=== PATIENT | male | born 1965 | race Caucasian/White ===

== ENCOUNTER 2016-12-12 19:30 | Emergency (ER) | payer OTHER ==
[~2016-12-12] VITALS: Ht 175.3 cm; Wt 93.0 kg
[~2016-12-12 19:30] MED LIST: ASPIRIN325 PO; CELEXA40 MG PO; ENALAPRIL MALEA10 M1 PO; IBUPROFEN200 M2 PO; KEFLEX500 MG PO; LIPITOR10 MG PO; LIPITOR40 MG PO; LOPRESSOR 50 MG50 M1 PO; LOPRESSOR25 PO; MOBIC15 MG PO; NORCO 5-325 TA1 EACH PO; PENICILLIN V P500 MG PO; PERCOCET 5-3251 EACH PO; PRAVACHOL20 MG PO; PRAVACHOL80 MG PO; PRILOSEC 20 MG20 MG PO; SERTRALINE HCL50 MG PO; SIMVASTATIN10 MG
[2016-12-12] MEDS ORDERED: ULTRAM 50MG TAB50 MG PO (20:01)
[2016-12-12] MEDS ORDERED: NORFLEX100 MG PO (20:01)
[2016-12-12] MEDS ORDERED: PREDNISONE 10 M10 MG PO (20:01)
== END 2016-12-12 20:19 | disposition home or self-care (01) ==
LOC: ER 19:30
DX: S39.012A Strain of muscle, fascia and tendon of lower back, initial encounter (principal); M54.16 Radiculopathy, lumbar region; I10 Essential (primary) hypertension; E78.5 Hyperlipidemia, unspecified; K21.9 Gastro-esophageal reflux disease without esophagitis; H81.09 Meniere's disease, unspecified ear; F32.9 Major depressive disorder, single episode, unspecified; F41.9 Anxiety disorder, unspecified; F17.210 Nicotine dependence, cigarettes, uncomplicated; W13.2XXA Fall from, out of or through roof, initial encounter; Y93.89 Activity, other specified; Y92.89 Other specified places as the place of occurrence of the external cause; Y99.8 Other external cause status; Z90.89 Acquired absence of other organs; Z95.5 Presence of coronary angioplasty implant and graft

== ENCOUNTER 2017-11-25 16:20 | Emergency (ER) | payer OTHER ==
[~2017-11-25] VITALS: Ht 175.3 cm; Wt 96.2 kg
[~2017-11-25 16:20] MED LIST changes: +ASPIR 8181 MG PO; +HYDROCHLOROTHIA25 M2 PO; +HYDROCODONE-AP1 EAC6 PO; +NAPROSYN500 MG PO; +NORFLEX100 MG PO; +OMEPRAZOLE20 M1 PO; +PREDNISONE 10 M10 MG PO; +ULTRAM 50MG TAB50 MG PO; +VALIUM5 MG PO
[2017-11-25] MEDS ORDERED: CYMBALTA60 MG PO (16:31)
[2017-11-25 16:50] LABS: ABSOLUTE NEUTROPHILS 5.7 thou/uL (1.4-8.2); BASOPHILS 1.4 % (0.0-2.0); EOSINOPHILS 3.2 % (0.0-3.0); HEMATOCRIT 36.1 % (42.0-52.0); HEMOGLOBIN 12.4 gm/dL (14.0-18.0); LYMPHOCYTES 34.3 % (24.0-44.0); MCH 30.4 pg (26.0-34.0); MCHC 34.3 g/dL (28.0-37.0); MCV 88.8 fL (80.0-100.0); MONOCYTES 7.4 % (1.0-8.0); PLATELET COUNT 276 thou/uL (150-400); POLYS 53.7 % (36.0-66.0); RBC 4.06 mil/uL (4.50-6.00); RDW 14.2 % (10.5-14.5); WBC 10.6 thou/uL (4.0-11.0)
[2017-11-25 17:07] LABS: CALCIUM 8.8 mg/dL (8.5-10.1); POTASSIUM 3.1 mmol/L (3.5-5.1)
[2017-11-25 17:12] LABS: ALBUMIN 3.8 g/dL (3.4-5.0); TOTAL BILIRUBIN 0.3 mg/dL (<0.1-1.0)
[2017-11-25 17:20] LABS: URINE BILIRUBIN NEGATIVE (Negative); URINE BLOOD NEGATIVE (Negative); URINE CLARITY CLEAR; URINE COLOR YELLOW; URINE GLUCOSE-RANDOM* NEGATIVE (Negative); URINE KETONES NEGATIVE (Negative); URINE LEUKOCYTES-REFLEX NEGATIVE (Negative); URINE NITRITE-REFLEX NEGATIVE (Negative); URINE PROTEIN (DIPSTICK) NEGATIVE (Negative); URINE SPECIFIC GRAVITY <= 1.005 (1.005-1.035); URINE UROBILINOGEN 0.2 E.U./dl (0.2-1.0)
[2017-11-25] MEDS ORDERED: CIPRO500 MG PO (18:13)
[2017-11-25] MEDS ORDERED: BENTYL 20 MG TA20 M1 PO (18:13)
== END 2017-11-25 18:31 | disposition home or self-care (01) ==
LOC: ER 16:20
PROVIDERS: Nurse Practitioner Family
DX: A09 Infectious gastroenteritis and colitis, unspecified (principal); I10 Essential (primary) hypertension; E78.5 Hyperlipidemia, unspecified; K21.9 Gastro-esophageal reflux disease without esophagitis; F41.9 Anxiety disorder, unspecified; F32.9 Major depressive disorder, single episode, unspecified; Z95.811 Presence of heart assist device; F17.210 Nicotine dependence, cigarettes, uncomplicated

== ENCOUNTER 2018-01-19 13:34 | Emergency (ER) | payer OTHER ==
[~2018-01-19] VITALS: Ht 175.3 cm; Wt 97.5 kg
[~2018-01-19 13:34] MED LIST changes: +BENTYL 20 MG TA20 M1 PO; +CIPRO500 MG PO; +CYMBALTA60 MG PO
[2018-01-19 13:45] LABS: URINE BILIRUBIN NEGATIVE (Negative); URINE BLOOD 3+ (Negative); URINE CLARITY CLEAR; URINE COLOR YELLOW; URINE GLUCOSE-RANDOM* NEGATIVE (Negative); URINE KETONES NEGATIVE (Negative); URINE LEUKOCYTES-REFLEX NEGATIVE (Negative); URINE NITRITE-REFLEX NEGATIVE (Negative); URINE PROTEIN (DIPSTICK) NEGATIVE (Negative); URINE SPECIFIC GRAVITY <= 1.005 (1.005-1.035); URINE UROBILINOGEN 0.2 E.U./dl (0.2-1.0)
[2018-01-19] MEDS ORDERED: ZOLOFT100 MG PO (13:48)
[2018-01-19] MEDS ORDERED: QUETIAPINE FUMA25 MG PO (13:50)
[2018-01-19 14:06] LABS: CRYSTALS None Seen /LPF (None Seen); SQUAMOUS None Seen /LPF (0-3); URINE RBC >20 Many /HPF (0-2)
[2018-01-19 14:07] LABS: BACTERIA-REFLEX 1-9 Few /HPF (None Seen); CASTS None Seen /LPF (None Seen); URINE WBC-REFLEX None Seen /HPF (0-5)
[2018-01-19 14:12] LABS: ABSOLUTE NEUTROPHILS 5.3 thou/uL (1.4-8.2); BASOPHILS 0.8 % (0.0-2.0); EOSINOPHILS 3.6 % (0.0-3.0); HEMATOCRIT 38.8 % (42.0-52.0); HEMOGLOBIN 13.3 gm/dL (14.0-18.0); LYMPHOCYTES 35.9 % (24.0-44.0); MCH 30.5 pg (26.0-34.0); MCHC 34.3 g/dL (28.0-37.0); MONOCYTES 5.2 % (1.0-8.0); PLATELET COUNT 260 thou/uL (150-400); POLYS 54.5 % (36.0-66.0); RBC 4.37 mil/uL (4.50-6.00); RDW 14.1 % (10.5-14.5); WBC 9.7 thou/uL (4.0-11.0)
[2018-01-19 14:22] LABS: CALCIUM 9.1 mg/dL (8.5-10.1); CREATININE 1.1 mg/dL (0.7-1.3); POTASSIUM 3.8 mmol/L (3.5-5.1)
[2018-01-19 14:27] LABS: ALBUMIN 4.1 g/dL (3.4-5.0); TOTAL BILIRUBIN 0.4 mg/dL (<0.1-1.0); TOTAL PROTEIN 7.7 g/dL (6.4-8.2)
[2018-01-19] MEDS ORDERED: FLOMAX0.4 MG PO (15:03)
[2018-01-19] MEDS ORDERED: CIPROFLOXACIN500 M1 PO (15:03)
[2018-01-19] MEDS ORDERED: PHENAZOPYRIDIN200 M2 PO (15:03)
[2018-01-19] MEDS ORDERED: NORCO 10-325 T1 EACH PO (15:03)
== END 2018-01-19 19:04 | disposition home or self-care (01) ==
LOC: ER 13:34
PROVIDERS: Physician Assistant
DX: N39.0 Urinary tract infection, site not specified (principal); R31.9 Hematuria, unspecified; I10 Essential (primary) hypertension; E78.5 Hyperlipidemia, unspecified; K21.9 Gastro-esophageal reflux disease without esophagitis; F32.9 Major depressive disorder, single episode, unspecified; F41.9 Anxiety disorder, unspecified; Z95.5 Presence of coronary angioplasty implant and graft; F17.210 Nicotine dependence, cigarettes, uncomplicated

== ENCOUNTER 2018-02-19 11:01 | Emergency (ER) | payer OTHER ==
[~2018-02-19] VITALS: Ht 175.3 cm; Wt 97.5 kg
[~2018-02-19 11:01] MED LIST changes: +CIPROFLOXACIN500 M1 PO; +FLOMAX0.4 MG PO; +NORCO 10-325 T1 EACH PO; +PHENAZOPYRIDIN200 M2 PO; +QUETIAPINE FUMA25 MG PO; +ZOLOFT100 MG PO
[2018-02-19] MEDS ORDERED: NORCO 5-325 TA1 EACH PO (12:37)
== END 2018-02-19 12:57 | disposition home or self-care (01) ==
LOC: ER 11:01
DX: S97.81XA Crushing injury of right foot, initial encounter (principal); G89.18 Other acute postprocedural pain; F17.210 Nicotine dependence, cigarettes, uncomplicated; I10 Essential (primary) hypertension; E78.5 Hyperlipidemia, unspecified; K21.9 Gastro-esophageal reflux disease without esophagitis; F32.9 Major depressive disorder, single episode, unspecified; F41.9 Anxiety disorder, unspecified; Z90.89 Acquired absence of other organs; Z95.5 Presence of coronary angioplasty implant and graft; W28.XXXA Contact with powered lawn mower, initial encounter; Y92.007 Garden or yard of unspecified non-institutional (private) residence as the place of occurrence of the external cause; Y93.H2 Activity, gardening and landscaping; Y99.8 Other external cause status

== ENCOUNTER 2018-07-16 13:13 | Emergency (ER) | payer OTHER ==
[~2018-07-16] VITALS: Ht 172.7 cm; Wt 90.7 kg
[2018-07-16 13:38] LABS: URINE CLARITY CLEAR; URINE COLOR YELLOW; URINE GLUCOSE-RANDOM* NEGATIVE (Negative); URINE KETONES NEGATIVE (Negative); URINE PROTEIN (DIPSTICK) NEGATIVE (Negative); URINE SPECIFIC GRAVITY < 1.005 (1.005-1.035)
[2018-07-16 13:39] LABS: URINE BILIRUBIN NEGATIVE (Negative); URINE BLOOD 3+ (Negative); URINE LEUKOCYTES-REFLEX NEGATIVE (Negative); URINE NITRITE-REFLEX NEGATIVE (Negative); URINE UROBILINOGEN 0.2 E.U./dl (0.2-1.0)
[2018-07-16 13:48] LABS: BACTERIA-REFLEX None Seen /HPF (None Seen); CASTS None Seen /LPF (None Seen); CRYSTALS None Seen /LPF (None Seen); SQUAMOUS None Seen /LPF (0-3); URINE RBC >20 Many /HPF (0-2); URINE WBC-REFLEX 0-5 Rare /HPF (0-5)
[2018-07-16 14:01] LABS: HEMATOCRIT 39.5 % (42.0-52.0); HEMOGLOBIN 13.4 gm/dL (14.0-18.0); MCH 30.2 pg (26.0-34.0); MCHC 33.9 g/dL (28.0-37.0); RBC 4.44 mil/uL (4.50-6.00); WBC 9.9 thou/uL (4.0-11.0)
[2018-07-16 14:04] LABS: CALCIUM 9.3 mg/dL (8.5-10.1); POTASSIUM 3.5 mmol/L (3.5-5.1)
[2018-07-16] MEDS ORDERED: LIPITOR80 MG PO (14:21)
[2018-07-16] MEDS ORDERED: NORCO 5-325 TA1 EACH PO (14:52)
[2018-07-16 15:16] VITALS: BP 123/77
== END 2018-07-16 15:17 | disposition home or self-care (01) ==
LOC: ER 13:13
PROVIDERS: Emergency Medicine
DX: R31.9 Hematuria, unspecified (principal); N32.89 Other specified disorders of bladder; I10 Essential (primary) hypertension; E78.5 Hyperlipidemia, unspecified; K21.9 Gastro-esophageal reflux disease without esophagitis; F32.9 Major depressive disorder, single episode, unspecified; F41.9 Anxiety disorder, unspecified; F17.210 Nicotine dependence, cigarettes, uncomplicated

== ENCOUNTER 2018-07-27 16:06 | Emergency (ER) | payer OTHER ==
[~2018-07-27] VITALS: Ht 175.3 cm; Wt 92.1 kg
[~2018-07-27 16:06] MED LIST changes: +LIPITOR80 MG PO
[2018-07-27 16:29] LABS: URINE BILIRUBIN NEGATIVE (Negative); URINE BLOOD 3+ (Negative); URINE CLARITY CLEAR; URINE COLOR YELLOW; URINE GLUCOSE-RANDOM* NEGATIVE (Negative); URINE KETONES NEGATIVE (Negative); URINE LEUKOCYTES-REFLEX NEGATIVE (Negative); URINE NITRITE-REFLEX NEGATIVE (Negative); URINE PROTEIN (DIPSTICK) NEGATIVE (Negative); URINE SPECIFIC GRAVITY <= 1.005 (1.005-1.035); URINE UROBILINOGEN 0.2 E.U./dl (0.2-1.0)
[2018-07-27 16:44] LABS: BACTERIA-REFLEX 1-9 Few /HPF (None Seen); CASTS None Seen /LPF (None Seen); CRYSTALS None Seen /LPF (None Seen); SQUAMOUS None Seen /LPF (0-3); URINE RBC >20 Many /HPF (0-2); URINE WBC-REFLEX None Seen /HPF (0-5)
[2018-07-27 16:47] LABS: ABSOLUTE NEUTROPHILS 4.2 thou/uL (1.4-8.2); BASOPHILS 1.1 % (0.0-2.0); EOSINOPHILS 3.9 % (0.0-3.0); HEMATOCRIT 39.4 % (42.0-52.0); HEMOGLOBIN 13.4 gm/dL (14.0-18.0); LYMPHOCYTES 38.4 % (24.0-44.0); MCH 30.2 pg (26.0-34.0); MONOCYTES 5.1 % (1.0-8.0); PLATELET COUNT 263 thou/uL (150-400); POLYS 51.5 % (36.0-66.0); RBC 4.42 mil/uL (4.50-6.00); RDW 14.7 % (10.5-14.5); WBC 8.1 thou/uL (4.0-11.0)
[2018-07-27 16:54] LABS: CALCIUM 9.4 mg/dL (8.5-10.1); POTASSIUM 3.8 mmol/L (3.5-5.1)
[2018-07-27 17:00] LABS: TOTAL BILIRUBIN 0.2 mg/dL (<0.1-1.0); TOTAL PROTEIN 7.6 g/dL (6.4-8.2)
[2018-07-27] MEDS ORDERED: CIPRO500 MG PO (19:11)
[2018-07-27] MEDS ORDERED: NORCO 10-325 T1 EACH PO (19:11)
[2018-07-27 19:19] VITALS: BP 146/76
== END 2018-07-27 19:20 | disposition home or self-care (01) ==
LOC: ER 16:06
PROVIDERS: Physician Assistant
DX: N39.0 Urinary tract infection, site not specified (principal); N41.9 Inflammatory disease of prostate, unspecified; R31.9 Hematuria, unspecified; F17.210 Nicotine dependence, cigarettes, uncomplicated; I10 Essential (primary) hypertension; E78.5 Hyperlipidemia, unspecified; K21.9 Gastro-esophageal reflux disease without esophagitis; F32.9 Major depressive disorder, single episode, unspecified; F41.9 Anxiety disorder, unspecified; Z90.89 Acquired absence of other organs; Z95.5 Presence of coronary angioplasty implant and graft

== ENCOUNTER 2018-08-17 14:07 | Emergency (ER) | payer OTHER ==
[~2018-08-17] VITALS: Ht 175.3 cm; Wt 95.3 kg
[2018-08-17] MEDS ORDERED: OXYBUTYNIN 5 MG5 M2 PO (14:32)
[2018-08-17] MEDS ORDERED: SEROQUEL XR400 M1 PO (14:32)
[2018-08-17] MEDS ORDERED: NORCO 5-325 TA1 EACH PO (15:55)
[2018-08-17] MEDS ORDERED: MOBIC7.5 MG PO (15:55)
[2018-08-17 16:10] VITALS: BP 108/73
== END 2018-08-17 16:10 | disposition home or self-care (01) ==
LOC: ER 14:07
DX: S39.012A Strain of muscle, fascia and tendon of lower back, initial encounter (principal); S20.212A Contusion of left front wall of thorax, initial encounter; M25.552 Pain in left hip; F17.210 Nicotine dependence, cigarettes, uncomplicated; I10 Essential (primary) hypertension; E78.5 Hyperlipidemia, unspecified; K21.9 Gastro-esophageal reflux disease without esophagitis; F41.9 Anxiety disorder, unspecified; F32.9 Major depressive disorder, single episode, unspecified; Z95.5 Presence of coronary angioplasty implant and graft; Z90.89 Acquired absence of other organs; W00.0XXA Fall on same level due to ice and snow, initial encounter; Y92.89 Other specified places as the place of occurrence of the external cause; Y93.01 Activity, walking, marching and hiking; Y99.8 Other external cause status

== ENCOUNTER 2018-11-12 18:51 | Emergency (ER) | payer OTHER ==
[~2018-11-12] VITALS: Ht 175.3 cm; Wt 88.5 kg
[~2018-11-12 18:51] MED LIST changes: +MOBIC7.5 MG PO; +OXYBUTYNIN 5 MG5 M2 PO; +SEROQUEL XR400 M1 PO
[2018-11-12] MEDS ORDERED: IBUPROFEN 600600 M1 PO (20:02)
[2018-11-12] MEDS ORDERED: HYDROCODONE-AP1 EAC6 PO (20:02)
[2018-11-12 20:52] VITALS: BP 140/78
== END 2018-11-12 20:52 | disposition home or self-care (01) ==
LOC: ER 18:51
DX: S90.32XA Contusion of left foot, initial encounter (principal); I10 Essential (primary) hypertension; E78.5 Hyperlipidemia, unspecified; K21.9 Gastro-esophageal reflux disease without esophagitis; F32.9 Major depressive disorder, single episode, unspecified; F41.9 Anxiety disorder, unspecified; Z95.5 Presence of coronary angioplasty implant and graft; F17.210 Nicotine dependence, cigarettes, uncomplicated; W20.8XXA Other cause of strike by thrown, projected or falling object, initial encounter; Y93.89 Activity, other specified; Y92.89 Other specified places as the place of occurrence of the external cause; Y99.8 Other external cause status

== ENCOUNTER 2018-11-29 16:15 | Emergency (ER) | payer OTHER ==
[~2018-11-29] VITALS: Ht 175.3 cm; Wt 84.4 kg
[2018-11-29 23:52] VITALS: BP 141/88
== END 2018-11-29 17:45 | disposition home or self-care (01) ==
LOC: ER 16:15
DX: S81.812A Laceration without foreign body, left lower leg, initial encounter (principal); E78.5 Hyperlipidemia, unspecified; K21.9 Gastro-esophageal reflux disease without esophagitis; F32.9 Major depressive disorder, single episode, unspecified; F41.9 Anxiety disorder, unspecified; F17.210 Nicotine dependence, cigarettes, uncomplicated; I10 Essential (primary) hypertension; Z95.5 Presence of coronary angioplasty implant and graft; Z90.49 Acquired absence of other specified parts of digestive tract; W10.9XXA Fall (on) (from) unspecified stairs and steps, initial encounter; Y92.009 Unspecified place in unspecified non-institutional (private) residence as the place of occurrence of the external cause; Y93.89 Activity, other specified; Y99.8 Other external cause status

== ENCOUNTER 2019-01-06 16:10 | Emergency (ER) | payer OTHER ==
[~2019-01-06] VITALS: Ht 175.3 cm; Wt 84.4 kg
[~2019-01-06 16:10] MED LIST changes: +AMOXICILLIN500 M1 PO; +IBUPROFEN 600600 M1 PO
[2019-01-06] MEDS ORDERED: NORCO 5-325 TA1 EAC1 PO (17:06)
[2019-01-06 17:49] VITALS: BP 133/91
== END 2019-01-06 17:50 | disposition home or self-care (01) ==
LOC: ER 16:10
DX: M27.3 Alveolitis of jaws (principal); G89.18 Other acute postprocedural pain; I10 Essential (primary) hypertension; K21.9 Gastro-esophageal reflux disease without esophagitis; E78.00 Pure hypercholesterolemia, unspecified; F41.9 Anxiety disorder, unspecified; F32.9 Major depressive disorder, single episode, unspecified; F17.210 Nicotine dependence, cigarettes, uncomplicated; E78.5 Hyperlipidemia, unspecified; Z90.89 Acquired absence of other organs; Z95.5 Presence of coronary angioplasty implant and graft

== ENCOUNTER 2019-02-25 17:46 | Emergency (ER) | payer OTHER ==
[~2019-02-25] VITALS: Ht 175.3 cm; Wt 80.7 kg
[~2019-02-25 17:46] MED LIST changes: +NORCO 5-325 TA1 EAC1 PO
[2019-02-25 18:13] LABS: URINE BILIRUBIN NEGATIVE (Negative); URINE BLOOD 3+ (Negative); URINE CLARITY CLEAR; URINE COLOR YELLOW; URINE GLUCOSE-RANDOM* NEGATIVE (Negative); URINE KETONES NEGATIVE (Negative); URINE LEUKOCYTES-REFLEX NEGATIVE (Negative); URINE NITRITE-REFLEX NEGATIVE (Negative); URINE PROTEIN (DIPSTICK) NEGATIVE (Negative); URINE SPECIFIC GRAVITY <= 1.005 (1.005-1.035); URINE UROBILINOGEN 0.2 E.U./dl (0.2-1.0)
[2019-02-25 18:19] LABS: CASTS None Seen /LPF (None Seen); CRYSTALS None Seen /LPF (None Seen); SQUAMOUS None Seen /LPF (0-3); URINE RBC >20 Many /HPF (0-2)
[2019-02-25 18:19] LABS: ABSOLUTE NEUTROPHILS 4.4 thou/uL (1.4-8.2); BASOPHILS 1.4 % (0.0-2.0); EOSINOPHILS 2.5 % (0.0-3.0); HEMATOCRIT 36.9 % (42.0-52.0); HEMOGLOBIN 12.8 gm/dL (14.0-18.0); LYMPHOCYTES 33.2 % (24.0-44.0); MCH 30.9 pg (26.0-34.0); MCHC 34.6 g/dL (28.0-37.0); MCV 89.2 fL (80.0-100.0); MONOCYTES 6.9 % (1.0-8.0); PLATELET COUNT 336 thou/uL (150-400); RBC 4.14 mil/uL (4.50-6.00); RDW 14.6 % (10.5-14.5); WBC 7.9 thou/uL (4.0-11.0)
[2019-02-25 18:20] LABS: BACTERIA-REFLEX None Seen /HPF (None Seen); URINE WBC-REFLEX None Seen /HPF (0-5)
[2019-02-25 18:29] LABS: CALCIUM 9.3 mg/dL (8.5-10.1); CREATININE 0.8 mg/dL (0.7-1.3); POTASSIUM 3.8 mmol/L (3.5-5.1)
[2019-02-25 18:35] LABS: ALBUMIN 3.9 g/dL (3.4-5.0); TOTAL BILIRUBIN 0.2 mg/dL (<0.1-1.0); TOTAL PROTEIN 7.7 g/dL (6.4-8.2)
[2019-02-25] MEDS ORDERED: NORCO 5-325 TA1 EAC1 PO (19:25)
[2019-02-25 19:36] VITALS: BP 106/76
== END 2019-02-25 19:38 | disposition home or self-care (01) ==
LOC: ER 17:46
PROVIDERS: Emergency Medicine
DX: R10.32 Left lower quadrant pain (principal); I10 Essential (primary) hypertension; E78.5 Hyperlipidemia, unspecified; K21.9 Gastro-esophageal reflux disease without esophagitis; F32.9 Major depressive disorder, single episode, unspecified; F41.9 Anxiety disorder, unspecified; H81.09 Meniere's disease, unspecified ear; F17.210 Nicotine dependence, cigarettes, uncomplicated; Z95.2 Presence of prosthetic heart valve; Z90.89 Acquired absence of other organs; Z98.890 Other specified postprocedural states

== ENCOUNTER 2019-05-27 12:42 | Emergency (ER) | payer OTHER ==
[~2019-05-27] VITALS: Ht 175.3 cm; Wt 79.8 kg
[2019-05-27 14:35] LABS: URINE BILIRUBIN NEGATIVE (Negative); URINE BLOOD 3+ (Negative); URINE CLARITY CLEAR; URINE COLOR YELLOW; URINE GLUCOSE-RANDOM* NEGATIVE (Negative); URINE KETONES NEGATIVE (Negative); URINE LEUKOCYTES-REFLEX NEGATIVE (Negative); URINE NITRITE-REFLEX NEGATIVE (Negative); URINE PROTEIN (DIPSTICK) NEGATIVE (Negative); URINE SPECIFIC GRAVITY <= 1.005 (1.005-1.035); URINE UROBILINOGEN 0.2 E.U./dl (0.2-1.0)
[2019-05-27 14:49] LABS: BACTERIA-REFLEX None Seen /HPF (None Seen); CASTS None Seen /LPF (None Seen); CRYSTALS None Seen /LPF (None Seen); SQUAMOUS 0-3 Few /LPF (0-3); URINE RBC >20 Many /HPF (0-2); URINE WBC-REFLEX 0-5 Rare /HPF (0-5)
[2019-05-27 15:21] LABS: ABSOLUTE NEUTROPHILS 7.1 thou/uL (1.4-8.2); BASOPHILS 0.3 % (0.0-2.0); EOSINOPHILS 0.3 % (0.0-3.0); HEMATOCRIT 41.1 % (42.0-52.0); HEMOGLOBIN 13.8 gm/dL (14.0-18.0); LYMPHOCYTES 21.9 % (24.0-44.0); MCH 30.6 pg (26.0-34.0); MCHC 33.6 g/dL (28.0-37.0); MONOCYTES 6.6 % (1.0-8.0); PLATELET COUNT 338 thou/uL (150-400); POLYS 70.9 % (36.0-66.0); RBC 4.52 mil/uL (4.50-6.00); RDW 14.8 % (10.5-14.5)
[2019-05-27 15:23] LABS: CALCIUM 9.7 mg/dL (8.5-10.1); CREATININE 0.9 mg/dL (0.7-1.3); POTASSIUM 3.8 mmol/L (3.5-5.1)
[2019-05-27 15:29] LABS: ALBUMIN 4.6 g/dL (3.4-5.0); TOTAL BILIRUBIN 0.4 mg/dL (<0.1-1.0); TOTAL PROTEIN 8.5 g/dL (6.4-8.2)
[2019-05-27] MEDS ORDERED: ULTRAM 50MG TAB50 MG PO (17:12)
[2019-05-27 17:34] VITALS: BP 138/86
== END 2019-05-27 17:34 | disposition home or self-care (01) ==
LOC: ER 12:42
PROVIDERS: Emergency Medicine
DX: R10.9 Unspecified abdominal pain (principal); R31.9 Hematuria, unspecified; F17.210 Nicotine dependence, cigarettes, uncomplicated; I10 Essential (primary) hypertension; E78.5 Hyperlipidemia, unspecified; K21.9 Gastro-esophageal reflux disease without esophagitis; Z98.890 Other specified postprocedural states; Z79.82 Long term (current) use of aspirin; Z79.899 Other long term (current) drug therapy; Z87.442 Personal history of urinary calculi; Z90.49 Acquired absence of other specified parts of digestive tract; Z95.5 Presence of coronary angioplasty implant and graft

== ENCOUNTER 2020-11-20 14:20 | Inpatient (IN) | payer OTHER ==
[~2020-11-20] VITALS: Ht 175.3 cm; Wt 78.9 kg
[2020-11-20 14:26] VITALS: BP 147/81
[2020-11-20 15:17] LABS: ABSOLUTE NEUTROPHILS 12.7 thou/uL (1.4-8.2); BASOPHILS 0.4 % (0.0-2.0); EOSINOPHILS 0.2 % (0.0-3.0); HEMATOCRIT 38.4 % (42.0-52.0); LYMPHOCYTES 12.4 % (24.0-44.0); MCHC 33.9 g/dL (28.0-37.0); MCV 88.3 fL (80.0-100.0); MONOCYTES 5.3 % (1.0-8.0); PLATELET COUNT 335 thou/uL (150-400); POLYS 81.7 % (36.0-66.0); RBC 4.35 mil/uL (4.50-6.00); WBC 15.5 thou/uL (4.0-11.0)
[2020-11-20 15:22] LABS: ANION GAP 15 mmol/L (7-16); BUN 6 mg/dL (7-18); CALCIUM 9.3 mg/dL (8.5-10.1); CHLORIDE 94 mmol/L (98-107); CO2 23 mmol/L (21-32); CREATININE 0.8 mg/dL (0.7-1.3); GLUCOSE 98 mg/dL (74-106); POTASSIUM 3.6 mmol/L (3.5-5.1); SODIUM 132 mmol/L (136-145)
[2020-11-20 15:26] LABS: ALBUMIN 4.1 g/dL (3.4-5.0); DIRECT BILIRUBIN < 0.1 mg/dL (<0.1-0.2); LIPASE 74 U/L (73-393); SGOT 18 U/L (15-37); SGPT 14 U/L (16-63); TOTAL BILIRUBIN 0.5 mg/dL (0.2-1.0); TOTAL PROTEIN 7.8 g/dL (6.4-8.2)
[2020-11-20 19:36] VITALS: BP 130/66
[2020-11-20 20:09] VITALS: BP 130/66
--- NOTE | 2020-11-21 00:17 | NUR ---
ADMITTED TO THE UNIT AT APPROXIMATELY 2030. PT IS A/O X4 AND IS UP AD BENNY. C/O GENERALIZED ABDOMINAL PAIN. PRN PAIN MEDICATION GIVEN DIRECTED. VSS. AFEBRILE. ADMISSION COMPLETED. CALL LIGHT IS WITHIN REACH.
[2020-11-21 01:46] LABS: URINE BILIRUBIN NEGATIVE (Negative); URINE BLOOD NEGATIVE (Negative); URINE CLARITY CLEAR; URINE COLOR YELLOW; URINE GLUCOSE-RANDOM* NEGATIVE (Negative); URINE KETONES 2+ (Negative); URINE LEUKOCYTES NEGATIVE (Negative); URINE NITRITE NEGATIVE (Negative); URINE PROTEIN (DIPSTICK) NEGATIVE (Negative); URINE UROBILINOGEN 0.2 E.U./dl (0.2-1.0)
[2020-11-21 06:03] LABS: HEMATOCRIT 33.6 % (42.0-52.0); HEMOGLOBIN 11.3 gm/dL (14.0-18.0); MCH 30.2 pg (26.0-34.0); MCHC 33.7 g/dL (28.0-37.0); MCV 89.7 fL (80.0-100.0); RBC 3.75 mil/uL (4.50-6.00); RDW 16.1 % (10.5-14.5); WBC 9.3 thou/uL (4.0-11.0)
[2020-11-21 06:16] LABS: ALBUMIN 3.2 g/dL (3.4-5.0); CALCIUM 8.1 mg/dL (8.5-10.1); CREATININE 0.7 mg/dL (0.7-1.3); POTASSIUM 3.8 mmol/L (3.5-5.1); TOTAL BILIRUBIN 0.5 mg/dL (0.2-1.0); TOTAL PROTEIN 6.1 g/dL (6.4-8.2)
[2020-11-21 07:40] VITALS: BP 136/76
--- NOTE | 2020-11-21 13:33 | NUR ---
ASSESSMENT: CM REVIEWED CHART AND SPOKE WITH PATIENT. PT IS ALERT AND ORIENTED X4. PT WAS ADMITTED DUE TO ABDOMINAL PAIN AND POSSIBLE SBO. PT RE[facility]TS [facility] BUT WAS HAVING SUCH SEVERE PAIN [facility] WAS THE CLOSEST [facility]. PT REPORTS THAT HE HAS AN APT THAT HE LIVES IN BUT STATES HE SPENDS ALOT OF TIME AT HIS GIRLFRIENDS HOME. PT REPORTS NO STEPS HIS APT BUT DOES HAVE A COUPLE WHEN STAYING WITH GIRLFRIEND. PT IS FULLY INDEPENDENT WITH ADLS AND AMBULATION. PT REPORTS NO HX OF HH OR SNF. CM DISCUSSED ROLE AND PT DOES NOT ANTICIPATE ANY NEEDS FROM CM. PT REMAINS ON CLEARS UNTIL BEING EVALUATED BY GI. CM WILL CONTINUE TO FOLLOW.
--- NOTE | 2020-11-21 15:47 | NUR ---
PER CALL FROM [facility]ICE OF [facility] PT'S STAY HAS BEEN APPROVED UNTIL MEDICALLY STABLE. ONCE MEDICALLY STABLE IF CONT. HOSPITALIZATION IS NEEDED THEN PT WOULD NEED [facility], CALL [phone] FOR ASSIST IN ARRANGING [facility] TO [facility].
[2020-11-21 16:10] VITALS: BP 135/83
[2020-11-21 19:00] VITALS: BP 147/88
--- NOTE | 2020-11-21 19:53 | NUR ---
Received awake on bed. Due medications given as prescribed. On room air. Vital signs stable. On MS, not on telemetry; no complains and signs of chest pain, crushing sensation and heaviness. Assisted in ADLs. Up ad julieta. On clear liquid diet- tolerating well; no nausea, no vomiting and no abdominal pain noted. Continent of bowel and bladder, able to go to the toilet. With 1/2NS at 100cc/hr, infusing well at R AC. Complained of pain, due PRN pain meds given as prescribed. Pt requesting if home meds can be resumed- Dr Lewis informed and will review pt's home meds. Pt seen and examined by Dr Garcia- no surgical plans for now; may advance diet as tolerated. Pt moved to RM 442 due to maintenace issues from prev room 441; trasferred safely and with personal belongings with him To continue monitoring patient.
--- NOTE | 2020-11-22 02:55 | NUR ---
PT IS A/O X4 AND IS UP AD BENNY. ROOM AIR. VSS. AFEBRILE. C/O NOT GETTING ENOUGH SLEEP LASTNIGHT OR TODAY. REQUESTED MEDS AT 2130 AND ASKED NOT TO BE BOTHERED WHILE RESTING THIS NOC. PER PT WISHES ALL CARES HAVE BEEN GROUPED TOGETHER TO ALLOW FOR OPTIMAL SLEEP ENVIRONMENT. NO C/O DIARRHEA OR N/V BUT DOES C/O ABDOMINAL PAIN. PRN PAIN MEDICATION GIVEN DIRECTED. CALL LIGHT IS WITHIN REACH.
[2020-11-22 07:10] VITALS: BP 120/79
--- NOTE | 2020-11-22 13:06 | NUR ---
ASSUMED CARE OF PT AT 0700 PT IS PLEASANT AND LAYING QUIETLY AT 1304 AND STATED HIS PAIN HAS GOTTEN INCREASINGLY WORSE AND HE IS AT A 10 AND HE IS DOUBLED OVER AND IN TEARS. I PAGED DR. GALINDO AND HE CALLED BACK IMMEDIATELY AND SAID HE IS GOING TO CHANGE FREQUENCY OF HIS PAIN MEDS AND ORDER ANOTHER BELLY SCAN
[2020-11-22 16:50] VITALS: BP 145/87
[2020-11-22 19:16] VITALS: BP 136/81
--- NOTE | 2020-11-23 01:52 | NUR ---
PT AMBULATING TO BATHROOM INDEPENDENTLY AND IS TOLERATING WELL. MORPHINE PROVIDING PAIN RELIEF. DENIES NAUSEA. RESTING COMFORTABLY. NO NEEDS VOICED. CALL LIGHT WITHIN REACH. FREQUENT OBSERVATION.
[2020-11-23 04:16] VITALS: BP 111/66
[2020-11-23 09:23] VITALS: BP 127/90
--- NOTE | 2020-11-23 15:13 | NUR ---
PT RESTING COMFORTABLY. ENCOURAGED OOB AND WALKING. PT AFEBRILE, ADEQUATE UOP, NO BM, APPROPRIATE APPETITE. PT HAS BEEN THOUROUGHLY UPDATED AND EDUCATED ON CONDITION AND POC. PT PROGRESSING TOWARDS POC.
[2020-11-23 18:04] VITALS: BP 136/92
[2020-11-23 20:17] VITALS: BP 121/77
--- NOTE | 2020-11-24 02:51 | NUR ---
PT IS A/O X4 AND IS UP INDEPENDENTLY. HAS BEEN WALKING THE HALLS ON THE UNIT SEVERAL TIMES THIS EVENING. C/O ABDOMINAL PAIN. PRN PAIN MEDICATION GIVEN. REPORTS PASSING FLATTUS BUT NOT BM THIS SHIFT. ROOM AIR. VSS. AFEBRILE. CALLS OUT APPROPRIATELY. PROGRESSING TOWARDS PLAN OF CARE DC GOALS.
[2020-11-24 07:53] VITALS: BP 111/77
[2020-11-24] MEDS ORDERED: NORCO5 PO (10:38)
[2020-11-24 10:45] VITALS: BP 111/77
--- NOTE | 2020-11-24 11:10 | NUR ---
RN went over all discharge teaching at this time, IV out, all questions answered, and walked out with secratery for discharge to home at 1105.
== END 2020-11-24 11:14 | disposition home or self-care (01) | DRG 389 ==
LOC: ER 14:20 → 4S 18:30 → EROBS 18:30 → 4S 20:00
PROVIDERS: Emergency Medicine; Nurse Practitioner Family; ADMIT Hospitalist; ATTEND Hospitalist
DX: K56.600 Partial intestinal obstruction, unspecified as to cause (principal); K55.9 Vascular disorder of intestine, unspecified; I10 Essential (primary) hypertension; Z95.5 Presence of coronary angioplasty implant and graft; E78.5 Hyperlipidemia, unspecified; K21.9 Gastro-esophageal reflux disease without esophagitis; F32.9 Major depressive disorder, single episode, unspecified; F41.9 Anxiety disorder, unspecified; F17.210 Nicotine dependence, cigarettes, uncomplicated; I25.10 Atherosclerotic heart disease of native coronary artery without angina pectoris; Z71.6 Tobacco abuse counseling; Z79.82 Long term (current) use of aspirin; Z79.899 Other long term (current) drug therapy; K52.9 Noninfective gastroenteritis and colitis, unspecified
CPT/HCPCS: 10195

== ENCOUNTER 2021-01-18 20:01 | Emergency (ER) | payer OTHER ==
[~2021-01-18] VITALS: Ht 175.3 cm; Wt 77.1 kg
[~2021-01-18 20:01] MED LIST changes: +NORCO5 PO
[2021-01-18 21:31] LABS: ABSOLUTE NEUTROPHILS 10.7 thou/uL (1.4-8.2); EOSINOPHILS 0.6 % (0.0-3.0); HEMATOCRIT 35.2 % (42.0-52.0); MCH 30.4 pg (26.0-34.0); MCHC 34.2 g/dL (28.0-37.0); MONOCYTES 4.7 % (1.0-8.0); PLATELET COUNT 338 thou/uL (150-400); POLYS 67.7 % (36.0-66.0); RBC 3.96 mil/uL (4.50-6.00); RDW 15.9 % (10.5-14.5); WBC 15.7 thou/uL (4.0-11.0)
[2021-01-18 21:51] LABS: CALCIUM 8.6 mg/dL (8.5-10.1); CREATININE 0.9 mg/dL (0.7-1.3); POTASSIUM 3.1 mmol/L (3.5-5.1)
[2021-01-18 21:56] LABS: ALBUMIN 3.9 g/dL (3.4-5.0); TOTAL BILIRUBIN 0.2 mg/dL (0.2-1.0); TOTAL PROTEIN 7.4 g/dL (6.4-8.2)
[2021-01-18 22:16] LABS: URINE BILIRUBIN NEGATIVE (Negative); URINE BLOOD NEGATIVE (Negative); URINE CLARITY CLEAR; URINE COLOR YELLOW; URINE GLUCOSE-RANDOM* NEGATIVE (Negative); URINE KETONES NEGATIVE (Negative); URINE LEUKOCYTES-REFLEX NEGATIVE (Negative); URINE NITRITE-REFLEX NEGATIVE (Negative); URINE PROTEIN (DIPSTICK) NEGATIVE (Negative); URINE UROBILINOGEN 0.2 E.U./dl (0.2-1.0)
[2021-01-18] MEDS ORDERED: NORCO5 PO (23:07)
[2021-01-18] MEDS ORDERED: ZOFRAN ODT4 MG PO (23:08)
[2021-01-18 23:18] VITALS: BP 132/70
== END 2021-01-18 23:34 | disposition home or self-care (01) ==
LOC: ER 20:01
PROVIDERS: Emergency Medicine
DX: R10.11 Right upper quadrant pain (principal); I10 Essential (primary) hypertension; E78.5 Hyperlipidemia, unspecified; K21.9 Gastro-esophageal reflux disease without esophagitis; F32.9 Major depressive disorder, single episode, unspecified; F17.210 Nicotine dependence, cigarettes, uncomplicated; F41.9 Anxiety disorder, unspecified; Z79.899 Other long term (current) drug therapy; Z90.89 Acquired absence of other organs

== ENCOUNTER 2021-02-28 13:36 | Emergency (ER) | payer OTHER ==
[~2021-02-28] VITALS: Ht 175.3 cm; Wt 77.1 kg
[~2021-02-28 13:36] MED LIST changes: +ZOFRAN ODT4 MG PO
[2021-02-28 15:14] LABS: BASOPHILS 0.7 % (0.0-2.0); EOSINOPHILS 2.3 % (0.0-3.0); HEMATOCRIT 37.4 % (42.0-52.0); HEMOGLOBIN 12.5 gm/dL (14.0-18.0); LYMPHOCYTES 29.6 % (24.0-44.0); MCH 30.6 pg (26.0-34.0); MCHC 33.5 g/dL (28.0-37.0); MCV 91.4 fL (80.0-100.0); MONOCYTES 7.3 % (1.0-8.0); PLATELET COUNT 266 thou/uL (150-400); POLYS 60.1 % (36.0-66.0); RBC 4.09 mil/uL (4.50-6.00); RDW 16.3 % (10.5-14.5); WBC 8.4 thou/uL (4.0-11.0)
[2021-02-28 15:17] LABS: CALCIUM 8.8 mg/dL (8.5-10.1); CREATININE 0.8 mg/dL (0.7-1.3); POTASSIUM 3.8 mmol/L (3.5-5.1)
[2021-02-28 15:23] LABS: ALBUMIN 3.9 g/dL (3.4-5.0); TOTAL BILIRUBIN 0.4 mg/dL (0.2-1.0); TOTAL PROTEIN 7.5 g/dL (6.4-8.2)
[2021-02-28 15:29] LABS: URINE BILIRUBIN NEGATIVE (Negative); URINE BLOOD NEGATIVE (Negative); URINE CLARITY CLEAR; URINE COLOR YELLOW; URINE GLUCOSE-RANDOM* NEGATIVE (Negative); URINE KETONES NEGATIVE (Negative); URINE LEUKOCYTES-REFLEX NEGATIVE (Negative); URINE NITRITE-REFLEX NEGATIVE (Negative); URINE PROTEIN (DIPSTICK) NEGATIVE (Negative); URINE SPECIFIC GRAVITY <= 1.005 (1.005-1.035); URINE UROBILINOGEN 0.2 E.U./dl (0.2-1.0)
[2021-02-28] MEDS ORDERED: ZOFRAN ODT4 MG PO (17:02)
[2021-02-28] MEDS ORDERED: DICYCLOMINE HCL20 MG PO (17:02)
[2021-02-28 17:33] VITALS: BP 165/81
== END 2021-02-28 17:40 | disposition home or self-care (01) ==
LOC: ER 13:36
PROVIDERS: Emergency Medicine
DX: K59.00 Constipation, unspecified (principal); R10.31 Right lower quadrant pain; I10 Essential (primary) hypertension; E78.5 Hyperlipidemia, unspecified; K21.9 Gastro-esophageal reflux disease without esophagitis; F41.9 Anxiety disorder, unspecified; F32.9 Major depressive disorder, single episode, unspecified; F17.210 Nicotine dependence, cigarettes, uncomplicated; Z90.89 Acquired absence of other organs; Z98.890 Other specified postprocedural states; Z79.82 Long term (current) use of aspirin; Z79.899 Other long term (current) drug therapy

== ENCOUNTER 2021-03-22 15:39 | Emergency (ER) | payer OTHER ==
[~2021-03-22] VITALS: Ht 175.3 cm; Wt 79.4 kg
[~2021-03-22 15:39] MED LIST changes: +DICYCLOMINE HCL20 MG PO
[2021-03-22] MEDS ORDERED: DOXYCYCLINE 10100 MG PO (16:14)
[2021-03-22 16:28] VITALS: BP 118/72
== END 2021-03-22 16:29 | disposition home or self-care (01) ==
LOC: ER 15:39
DX: S81.811A Laceration without foreign body, right lower leg, initial encounter (principal); I10 Essential (primary) hypertension; Z90.89 Acquired absence of other organs; E78.5 Hyperlipidemia, unspecified; Z79.899 Other long term (current) drug therapy; Z79.82 Long term (current) use of aspirin; W45.8XXA Other foreign body or object entering through skin, initial encounter; Y93.89 Activity, other specified; Y92.89 Other specified places as the place of occurrence of the external cause; Y99.8 Other external cause status

== ENCOUNTER 2021-04-17 10:20 | Inpatient (IN) | payer OTHER ==
[~2021-04-17] VITALS: Ht 175.3 cm; Wt 79.4 kg
--- NOTE | ~2021-04-17 | EMS ---
[facility] [address] [place] [address] EMS Patient Care Report Name: FADIA NUNN Room #: REG JOAQUÍN Tamayo#: [id number] Admission: 04/17/21 Attend Phys: Discharge: Date of : 69 Report #: [id number] THIS REPORT FOR: //name// Report Transmitted: 04/17/2021 10:05 EMS Care Summary [place], [place]/[facility] Incident [id number] @ 04/17/2021 09:46 Incident Location [address] [place] [address] Patient FADIA NUNN Male, 56 Years 1965 Patient Address [address] [place] [address] Patient History Hypertension (HTN),Smoking,Hyperlipidemia,Cardiac - Stent,Anxiety, Patient Allergies No known allergies, Patient Medications Seroquel, Sertraline, Hydrochlorothiazide (Hctz), Atorvastatin, ASA, Metoprolol, Chief Complaint CP w/exertion and L Arm & Neck pain Disposition Transported Lights/[place] Dispatch Reason Chest Pain (Non-Traumatic) Transported To [facility] Narrative Called for CP. Upon arrival, P42 on the scene. Pt was DE PAZ x 3 sitting on the couch c/o CP, pain to the left arm and neck area and a severe headache. He said this happened before when he was 41y/o and with No ST elevation and he received a stent then. This has been going on and off for a week and worse in [facility] [address] [place] [address] EMS Patient Care Report Name: FADIA NUNN Room #: REG [facility].#: [id number] Admission: 04/17/21 Attend Phys: Discharge: Date of : 69 Report #: [id number] the last 24 hours. Pt was assisted to the EMS cot and loaded into the ambulance w/o incident. Vitals obtained. Baby ASA x 4. [address] elevation. 18g IV SL and D-stick. NTG x 1 which helped with pain. En route: emergency as a precaution. Vitals repeated. NTG x 1. RR to the ER. Arrived: pt taken to ER #3 and moved to their bed w/o incident. Pt care & report to ER staff. Initial Vitals @10:01P: 94,CO: 4,SpO2: 97, @10:04P: 92,Pain: 9/10,GCS: 15,SpO2: 99,IA Suspected: true @10:13P: 94, @10:13P: 97,CO: 5,SpO2: 96, @10:03P: 99,R: 16,BP: 151/94,Pain: 9/10,GCS: 15,Glucose: 106,CO: 6,SpO2: 97,Revised Trauma: 12, @10:15P: 86,R: 16,BP: 134/83,Pain: 5/10,GCS: 15,SpO2: 97,Revised Trauma: 12,IA Suspected: true @10:05P: 105,R: 16,BP: 109/77,Pain: 7/10,GCS: 15,CO: 7,SpO2: 96,Revised Trauma: 12,IA Suspected: true @10:01P: 96,R: 16,BP: 129/93,Pain: 9/10,GCS: 15,SpO2: 95,Revised Trauma: 12, @10:16P: 91,Pain: 5/10,GCS: 15,SpO2: 98,IA Suspected: true Assessments @09:57MENTAL:Time Oriented,Person Oriented,Place Oriented,Event Oriented,SKIN:HEENT:Head/Face: Other,Neck/Airway: ELMER,LUNG SOUNDS:ABDOMEN:PELVIS//GI:EXTREMITIES:Left Arm: Other,Left Arm: ELMER,Left Arm: ELMER,Right Arm: No Abnormalities,Left Leg: No Abnormalities,Right Leg: No Abnormalities,PULSE:Radial: 2+ Normal,NEURO:No Abnormalities, Impression Chest Pain / Discomfort Procedures @10:16 12-Lead ECG Response: UnchangedSucceeded @10:04 12-Lead ECG Response: UnchangedSucceeded @10:02 3-Lead ECG Response: UnchangedSucceeded @10:00 Stretcher Response: Unchanged @10:02 IV Therapy - Saline Lock 8cc (18 ga) Site: Antecubital-Left Response: UnchangedSucceeded @09:57 ALS Assessment Response: UnchangedSucceeded @10:01 Nitrostat - 0.4 Milligrams (mg) - Sublingual Response: Improved @10:13 Nitrostat - 0.4 Milligrams (mg) - Sublingual Response: Improved @10:01 Aspirin - 324 Milligrams (mg) - Oral Response: Unchanged Timeline 09:38,Call Received [facility] [address] [place] [address] EMS Patient Care Report Name: FADIA NUNN Room #: [facility]#: [id number] Admission: 04/17/21 Attend Phys: Discharge: Date of : 69 Report #: [id number] 09:38,Dispatch Notified 09:46,Dispatched 09:46,En Route 09:56,On Scene 09:57,At Patient 09:57,ALS Assessment,Response: UnchangedSucceeded, 10:00,Stretcher,Response: Unchanged 10:01,Aspirin - 324 Milligrams (mg) - Oral,Response: Unchanged 10:01,BP: 129/93 M,PULSE: 96,RR: 16 R,SPO2: 95 Ox,ETCO2: ,BG: ,PAIN: 9,GCS: 15, 10:01,Nitrostat - 0.4 Milligrams (mg) - Sublingual,Response: Improved 10:01,BP: / M,PULSE: 94,RR: R,SPO2: 97 Ox,ETCO2: ,BG: ,PAIN: ,GCS: , 10:02,3-Lead ECG,Response: UnchangedSucceeded, 10:02,IV Therapy - Saline Lock 8cc 18 ga Site: Antecubital-Left,Response: UnchangedSucceeded, 10:03,BP: 151/94 M,PULSE: 99,RR: 16 R,SPO2: 97 Ox,ETCO2: ,B,PAIN: 9,GCS: 15, 10:04,12-Lead ECG,Response: UnchangedSucceeded, 10:04,BP: / M,PULSE: 92,RR: R,SPO2: 99 Ox,ETCO2: ,BG: ,PAIN: 9,GCS: 15, 10:05,BP: 109/77 M,PULSE: 105,RR: 16 R,SPO2: 96 Ox,ETCO2: ,BG: ,PAIN: 7,GCS: 15, 10:13,Nitrostat - 0.4 Milligrams (mg) - Sublingual,Response: Improved 10:13,BP: / M,PULSE: 97,RR: R,SPO2: 96 Ox,ETCO2: ,BG: ,PAIN: ,GCS: , 10:13,BP: / M,PULSE: 94,RR: R,SPO2: Ox,ETCO2: ,BG: ,PAIN: ,GCS: , 10:15,BP: 134/83 M,PULSE: 86,RR: 16 R,SPO2: 97 Ox,ETCO2: ,BG: ,PAIN: 5,GCS: 15, 10:16,12-Lead ECG,Response: UnchangedSucceeded, 10:16,BP: / M,PULSE: 91,RR: R,SPO2: 98 Ox,ETCO2: ,BG: ,PAIN: 5,GCS: 15, 10:17,Depart Scene 10:30,At Destination 10:41,Call Closed Disclaimer v1.1 Copyright 2020 [employer] This EMS Care Summary contains data elements from the applicable legal record (which may be displayed differently). It is designed to provide pertinent information for the following purposes: continuity of care, clinical quality, and state data reporting. The complete legal record is available to ED staff and administrators of the receiving hospital in [employer]'s Patient Tracker. All data is provided "as is."
[~2021-04-17 10:20] MED LIST changes: +DOXYCYCLINE 10100 MG PO; -SEROQUEL XR400 M1 PO; +SEROQUEL400 MG PO
[2021-04-17] MEDS ORDERED: HYDROCHLOROTHIA25 M1 PO (10:31)
[2021-04-17 10:44] LABS: ABSOLUTE NEUTROPHILS 5.3 thou/uL (1.4-8.2); BASOPHILS 0.6 % (0.0-2.0); EOSINOPHILS 2.2 % (0.0-3.0); HEMATOCRIT 37.6 % (42.0-52.0); HEMOGLOBIN 12.6 gm/dL (14.0-18.0); LYMPHOCYTES 27.9 % (24.0-44.0); MCH 29.8 pg (26.0-34.0); MCHC 33.5 g/dL (28.0-37.0); MCV 88.8 fL (80.0-100.0); MONOCYTES 6.9 % (1.0-8.0); PLATELET COUNT 276 thou/uL (150-400); POLYS 62.4 % (36.0-66.0); RBC 4.23 mil/uL (4.50-6.00); WBC 8.5 thou/uL (4.0-11.0)
[2021-04-17 11:09] LABS: ANION GAP 6 mmol/L (7-16); BUN 5 mg/dL (7-18); CALCIUM 8.7 mg/dL (8.5-10.1); CHLORIDE 100 mmol/L (98-107); CO2 31 mmol/L (21-32); CREATININE 0.8 mg/dL (0.7-1.3); GLUCOSE 115 mg/dL (74-106); POTASSIUM 3.8 mmol/L (3.5-5.1); SODIUM 137 mmol/L (136-145)
[2021-04-17 11:15] LABS: ALBUMIN 2.9 g/dL (3.4-5.0); SGOT 21 U/L (15-37); SGPT 18 U/L (16-63); TOTAL BILIRUBIN 0.3 mg/dL (0.2-1.0); TOTAL PROTEIN 7.2 g/dL (6.4-8.2)
[2021-04-17 13:45] VITALS: BP 114/69
[2021-04-17 14:13] VITALS: BP 130/58
--- NOTE | 2021-04-17 14:23 | 2DMMODE ---
[facility] [place] [address] 2 D/M-MODE ECHOCARDIOGRAM Name: FADIA NUNN Room #: 207-P ADM IN .R.#: [id number] Admission: 04/17/21 Attend Phys: Kleber Davis MD Discharge: Date of : 69 Report #: [id number] THIS REPORT FOR: cc: FAM - Family physician unknown FAM - Family physician unknown Otilio Kenny MD [facility] ~ APPROVED REPORT Study performed: 04/17/2021 13:38:07 EXAM: Comprehensive 2D, Doppler, and color-flow Echocardiogram Patient Location: ER Status: routine BSA: 1.94 HR: 61 bpm BP: 114/69 mmHg Rhythm: NSR Other Information Study Quality: Good Indications Chest pain. Hx: CAD, PCI, tobacco abuse, HTN, HLP. 2D Dimensions IVSd: 9.43 (7-11mm) LVOT Diam: 20.33 (18-24mm) LVDd: 47.39 mm PWd: 9.64 (7-11mm) Ascending Ao: 31.01 (22-36mm) LVDs: 29.77 (25-40mm) Left Atrium: 33.44 (27-40mm) Volumes Left Atrial Volume (Systole) Single Plane 4CH: 42.10 mL Single Plane 2CH: 57.22 mL Aortic Valve AoV Peak Dick.: 1.21 m/s AO Peak Gr.: 5.83 mmHg LVOT Max P.98 mmHg LVOT Max V: 1.12 m/s ZAYNAB Vmax: 3.00 cm2 Mitral Valve [facility] [address] [place] [address] 2 D/M-MODE ECHOCARDIOGRAM Name: FADIA NUNN Room #: 207-P [facility] IN Jose.#: [id number] Admission: 04/17/21 Attend Phys: Kleber Davis MD Discharge: Date of : 69 Report #: [id number] E/A Ratio: 1.1 MV Decel. Time: 227.56 ms MV E Max Dick.: 0.68 m/s MV A Dick.: 0.60 m/s MV PHT: 65.99 ms IVRT: 110.73 ms Pulmonary Valve PV Peak Dick.: 0.96 m/s PV Peak Gr.: 3.69 mmHg Pulmonary Vein P Vein S: 0.70 m/s P Vein D: 0.43 m/s P Vein S/D Ratio: 1.63 Tricuspid Valve TR Peak Dick.: 1.85 m/s RAP Estimate: 5.00 mmHg TR Peak Gr.: 14.00 mmHg PA Pressure: 19.00 mmHg Left Ventricle The left ventricle is normal size. There is normal LV segmental wall motion. There is normal left ventricular wall thickness. Left ventricular systolic function is normal. LVEF is 60%. The left ventricular diastolic function is normal. Right Ventricle The right ventricle is normal size. The right ventricular systolic function is normal. Atria The left atrium size is normal. The right atrium size is normal. Aortic Valve The aortic valve is normal in structure. No aortic regurgitation is present. There is no aortic valvular stenosis. Mitral Valve The mitral valve is normal in structure. Trace mitral regurgitation. No evidence of mitral valve stenosis. Tricuspid Valve The tricuspid valve is normal in structure. Trace tricuspid regurgitation. Estimated PAP is 19mmHg. [facility] [place] [address] 2 D/M-MODE ECHOCARDIOGRAM Name: FADIA NUNN Room #: 207-P ADM IN M.R.#: [id number] Admission: 04/17/21 Attend Phys: Kleber Davis MD Discharge: Date of : 69 Report #: [id number] Pulmonic Valve Pulmonic valve is not well visualized. Trace pulmonic regurgitation. Great Vessels The aortic root is normal in size. The ascending aorta is normal in size. IVC is normal in size and collapses >50% with inspiration. Pericardium There is no pericardial effusion. <Conclusion> Normal left ventricle size/wall thickness Ejection fraction 60%, no obvious segmental wall motion abnormality Grade 1 diastolic dysfunction Normal right ventricle size/function Normal atrial size Normal aortic/mitral valve structure and function Trace tricuspid valve insufficiency PA systolic pressure estimated at 19 mmHg No pericardial effusion Normal aortic root size <ELECTRONICALLY SIGNED> By: Otilio Kenny MD, FACC 04/17/211421 21 21 Otilio Kenny MD, FAC /INF
[2021-04-17 14:24] VITALS: BP 121/81
--- NOTE | 2021-04-17 15:26 | EKG ---
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 : 1965 Requested By: Kleber Davis Order Number: [id number] MD: Otilio Kenny Measurements Intervals [place] Rate: 89 P: 64 MN: 163 QRS: 17 QRSD: 88 T: 56 QT: 373 QTc: 454 Interpretive Statements Sinus rhythm Ventricular premature complex Probable left atrial enlargement Compared to ECG 05/08/2012 14:14:58 Ventricular premature complex(es) now present Electronically Signed On 04-17-2021 15:26:12 CDT by Otilio Kenny [email or web address] <ELECTRONICALLY SIGNED> By: Otilio Kenny MD, MERGED WITH [facility] 04/17/21 1526 1023 1023 Otilio Kenny MD, FAC /EPI
[2021-04-17 16:18] VITALS: BP 125/75
--- NOTE | 2021-04-17 16:29 | CATHLAB ---
[facility] [place] [facility] [place] [address] INVASIVE PROCEDURE REPORT Name: FADIA NUNN Room #: 207-P ADM IN M.R.#: [id number] Admission: 04/17/21 Attend Phys: Kleber Davis MD Discharge: Date of : 69 Report #: [id number] THIS REPORT FOR: cc: FAM - Family physician unknown FAM - Family physician unknown Fransisco Wallace MD ~ APPROVED REPORT Study performed: 04/17/2021 14:21:01 Patient Details Patient Status: In-Patient Room #: 207 The patient is a 56 year-old male Event Personnel Fransisco Wallace Inside Sales Account Executive, Kathy Zafar RTR Monitor, Josiah Colon RTR Scrub, Shelbie Carr RN deputy sheriff generalist/bailiff Performed Art Access - R femoral artery* Left Heart Cath w/or w/o Coronaries 3761372 [facility] Hemostasis with Manual pressure 80032 Initial Mod Sed Same Phys/QHP Gr5y [id number] 70773 Mod Sed Same Phys/QHP Ea 229460 Indication Dyspnea, Unstable angina , Chest pain Risk Factors HypercholesterolemiaPhysical Activity, Coronary Artery DiseaseHypertension, Tobacco History () Procedure Narrative The Right Groin^ was infiltrated with 1% Lidocaine subcutaneous anesthesia. A PINNACLE 4FR Sheath #[id number] sheath was inserted into the RFA^. Coronary angiography was performed using coronary diagnostic catheters. The right coronary system was accessed and visualized with a JR4 catheter. The left coronary system was accessed and visualized with a JL4 catheter. The left ventricle was accessed and visualized with a JR4 catheter. Hemostasis was obtained with manual pressure following sheath removal without any complications. The patient tolerated the procedure well and there were no complications associated with the procedure. There was no hematoma. [facility] [place] [facility] [address] [place] [address] INVASIVE PROCEDURE REPORT Name: MECCANOEMYTOREYMELINAFADIA Room #: 207-P [facility] IN [facility].#: [id number] Admission: 04/17/21 Attend Phys: Kleber Davis MD Discharge: Date of : 69 Report #: [id number] Intraoperative Conscious Sedation Sedation start time: 15:24 Case end Time: 16:01 Fentanyl 50 mcg Versed 1 mg Fluoro Time: 2.20 minutes Dose: DAP 5352.80 cGycm2 796 mGy Contrast Type and Amount: Omnipaque 75 ml Coronary Angiography The patient's coronary anatomy is right dominant. Diagnostic Cath Left Main The left main artery is a large-caliber vessel, patent with no flow-limiting lesions. LAD The LAD is a moderate-sized caliber vessel, traverses the anterior wall and wraps around the apex. There is mild disease in the proximal segment, 20%. Diagonal 1 This is a small to moderate-sized caliber vessel, patent with no flow-limiting lesions. Circumflex There is mild disease in the proximal circumflex, 20%. OM1 This is a moderate-sized caliber vessel with a stent in the proximal segment. There is mild to moderate restenosis, 30 to 40%. Right Coronary The RCA is a dominant vessel with mild disease in the proximal segment. There is a borderline stenosis in the midsegment, 60%. R PDA This is a small to moderate-sized caliber vessel, patent with no flow-limiting lesions. RPLV This is a small to moderate-sized caliber vessel, patent with no flow-limiting lesions. Left Ventriculography Left Ventriculography was not performed. Ejection Fraction was 55-60% based off patient's Echocardiogram. An LVEDP was measured and there is no gradient across the outflow tract. Hemodynamics The aortic pressure is 126/62 mmHg with a mean of 91 mmHg. The left ventricular pressure is 139/1 mmHg with a mean of mmHg. The left ventricular end diastolic pressure is 16 mmHg. Conclusion 1. There is a patent stent in the first obtuse marginal artery with mild to moderate restenosis. [facility] [place] [facility] [address] [place] [address] INVASIVE PROCEDURE REPORT Name: FADIA NUNN Room #: 207-P [facility] IN M.R.#: [id number] Admission: 04/17/21 Attend Phys: Kleber Davis MD Discharge: Date of : 69 Report #: [id number] 2. There is mild disease in the proximal LAD. 3. There is a borderline stenosis in the mid RCA. Recommend stress testing. 4. There is normal LV systolic function. 5. Recommend aggressive risk factor management. <ELECTRONICALLY SIGNED> By: Fransisco Wallace MD 04/17/211628 28 28 Fransisco Wallace MD /INF
--- NOTE | 2021-04-17 18:19 | NUR ---
TOOK OVER CARE OF THIS PATIENT ADMITTED FROM ED. 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 NOTES FROM CARDIAC PROCEDURE REVIEWED AND PATIENT ON STRICT 2 HOUR BED REST AFTER HEMOSTASIS. HEMOSTASIS AT 1600. VITALS WNL; PATIENT DENIES CHEST PAIN BUT HAS SOME TIGHTNESS IN LEFT SHOULDER. PATIENT COMPLAINT OF HEADACHE; ADMINISTERED PRN PAIN MEDICATION. FALL PRECAUTIONS ARE IN PLACE. FAMILY MEMBER AT BEDSIDE. RIGHT GROIN SITE CDI, NO HEMATOMA NOTED. WILL CONTINUE TO MONITOR PATIENT'S VITALS.
[2021-04-17 19:15] VITALS: BP 118/62
[2021-04-17 20:15] VITALS: BP 109/52
[2021-04-18 00:23] VITALS: BP 135/80
[2021-04-18 02:54] LABS: CHOLESTEROL 238 mg/dL (<200); HDL CHOLESTEROL 32 mg/dL (>40); LDL CHOLESTEROL 185 mg/dL (<100); SERUM ASSESSMENT Clear; TC:HDL 7.4 Ratio (Not establshd); TRIGLYCERIDE 107 mg/dL (<150); VLDL 21 mg/dL (<40)
--- NOTE | 2021-04-18 04:37 | NUR ---
ASSUMED PT CARE AT 1900, SR ON TELE, C/O OF HEADACHE, REFUSED TYL, R. 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
[2021-04-18 04:45] VITALS: BP 111/59
[2021-04-18 07:40] VITALS: BP 121/70
--- NOTE | 2021-04-18 11:02 | NUR ---
Assumed care of pt this AM. Pt is A&O x4, on RA. Denies any chest pain. SR on the monitor. Pt c/o headache & nasal congestion this AM. Agitated that none of his home meds were started here. Plan to discharge today. Called Dr. Davis & got order for ibuprofen for headache. Will continue to assess needs while here.
[2021-04-18 11:10] VITALS: BP 115/68
[2021-04-18] MEDS ORDERED: IMDUR 30 MG TAB30 M1 PO (11:52)
[2021-04-18 11:53] VITALS: BP 115/68
== END 2021-04-18 11:59 | disposition home or self-care (01) | DRG 287 ==
LOC: ER 10:20 → 2N 13:14 → EROBS 13:14 → 2N 14:15
PROVIDERS: Emergency Medicine; Nurse Practitioner; ADMIT Internal Medicine; ATTEND Internal Medicine
PROC: 4A023N7 Measurement of Cardiac Sampling and Pressure, Left Heart, Percutaneous Approach (ICD-10-PCS; principal; 2021-04-17)
PROC: B2111ZZ Fluoroscopy of Multiple Coronary Arteries using Low Osmolar Contrast (ICD-10-PCS; 2021-04-17)
DX: I25.110 Atherosclerotic heart disease of native coronary artery with unstable angina pectoris (principal); T82.855A Stenosis of coronary artery stent, initial encounter; I10 Essential (primary) hypertension; K21.9 Gastro-esophageal reflux disease without esophagitis; F32.9 Major depressive disorder, single episode, unspecified; E78.00 Pure hypercholesterolemia, unspecified; F17.210 Nicotine dependence, cigarettes, uncomplicated; F41.9 Anxiety disorder, unspecified; E78.5 Hyperlipidemia, unspecified; Z71.6 Tobacco abuse counseling; Z82.49 Family history of ischemic heart disease and other diseases of the circulatory system; Z95.5 Presence of coronary angioplasty implant and graft; Z79.82 Long term (current) use of aspirin; Z79.899 Other long term (current) drug therapy; Y83.8 Other surgical procedures as the cause of abnormal reaction of the patient, or of later complication, without mention of misadventure at the time of the procedure; Y92.89 Other specified places as the place of occurrence of the external cause
CPT/HCPCS: 10081